=== PATIENT | female | born 1960 | race Caucasian/White ===

== ENCOUNTER 2022-05-06 11:10 | Emergency (ER) | payer OTHER ==
[~2022-05-06] VITALS: Ht 165.1 cm; Wt 82.6 kg
--- NOTE | 2022-05-06 11:15 | NUR ---
[id number] FROM HOME FOR C/O LOWER BACK PAIN S/O FALL ON TUESDAY. RATES PAIN 10/. ATTACHED TO MONITOR, NO RESP DISTRSS NOTED. WARM BLANKET PROVIDED FOR COMFORT. AWIATING MD GAITAN.
--- NOTE | 2022-05-06 11:29 | NUR ---
DR GRACIA AT THE BEDSIDE
[2022-05-06] MEDS ORDERED: MORPHINE SULFATE INJ 2 MG/ML DISP.SYRIN IM ONE (11:30)
[2022-05-06] MEDS ORDERED: ONDANSETRON 4 MG TAB.RAPDIS SL ONE (11:30)
[2022-05-06] MEDS ORDERED: MORPHINE SULFATE INJ 4 MG/ML DISP.SYRIN ONE ×3 (12:06→14:06)
[2022-05-06] MEDS ORDERED: ONDANSETRON 4 MG TAB.RAPDIS ONE (12:07)
--- NOTE | 2022-05-06 13:30 | NUR ---
MOVE SHEET SUBMITTED.
--- NOTE | 2022-05-06 13:44 | NUR ---
COVID TEST COLLECTED AND SENT
--- NOTE | 2022-05-06 13:54 | NUR ---
IV ETABLIHSED R WRIST 20G, LABS DRANW AND COLLECTED AT BEDSIDE
[2022-05-06 13:56] LABS: BASOPHILS % (AUTO) 0.4 % (0.0-2.0); EOSINOPHILS % (AUTO) 0.4 % (0.0-6.0); HEMATOCRIT 39 % (33-45); HEMOGLOBIN 12.8 g/dL (11.5-14.8); LYMPHOCYTES # (AUTO) 1.2 K/uL (0.8-4.8); LYMPHOCYTES % (AUTO) 10.1 % (20.0-44.0); MEAN CORPUSCULAR HGB CONC 33 g/dl (31.0-36.0); MEAN CORPUSCULAR VOLUME 93 fL (82-100); MONOCYTES # (AUTO) 0.7 K/uL (0.1-1.30); MONOCYTES % (AUTO) 5.9 % (2.0-12.0); NEUTROPHILS # (AUTO) 9.8 K/uL (1.8-8.9); NEUTROPHILS % (AUTO) 83.2 % (43.0-81.0); PLATELET COUNT (AUTO) 309 K/uL (150-450); WHITE BLOOD COUNT (AUTO) 11.7 K/uL (4.3-11.0)
[2022-05-06] MEDS ORDERED: PRED5TAB PO (14:02)
[2022-05-06] MEDS ORDERED: CARI350T27 PO (14:02)
[2022-05-06] MEDS ORDERED: PANT40TA49 PO (14:02)
[2022-05-06] MEDS ORDERED: TRAM50TA2 PO (14:02)
[2022-05-06 14:24] LABS: CREATININE 0.6 mg/dL (0.6-1.3); POTASSIUM 3.6 mmol/L (3.5-5.1)
[2022-05-06] MEDS ORDERED: MORPHINE SULFATE INJ 2 MG/ML DISP.SYRIN IV ONE (14:30)
--- NOTE | 2022-05-06 14:53 | NUR ---
SPOKE TO JOSH DICKINSON [phone] AND LOOKING FOR SNF PLACEMENT FOR PAIN MANAGEMENT. ASKING FOR CLINICALS TO BE FAXED TO [phone]
[2022-05-06] MEDS ORDERED: KETOROLAC TROMETHAMINE 15 MG/ML VIAL ONE (16:18)
[2022-05-06] MEDS ORDERED: KETOROLAC TROMETHAMINE INJ 30 MG/ML VIAL IV ONE (16:30)
[2022-05-06] MEDS ORDERED: METOCLOPRAMIDE HCL 10 MG/2 ML VIAL ONE (17:02)
[2022-05-06] MEDS ORDERED: METOCLOPRAMIDE HCL 10 MG/2 ML VIAL IV ONE (17:30)
[2022-05-06] MEDS ORDERED: HYDR-4209 PO (18:01)
--- NOTE | 2022-05-06 18:15 | NUR ---
IV removed. Catheter intact and site benign. Pressure and 4x4 applied to site. No bleeding noted.Patient discharged to home in stable condition. Written and verbal after care instructions given. Patient verbalizes understanding of instruction.
[2022-05-06 18:47] VITALS: BP 143/84
== END 2022-05-06 18:48 | disposition home or self-care (01) ==
LOC: ER 11:18
DX: M54.50 Low back pain, unspecified (principal); M51.36 Other intervertebral disc degeneration, lumbar region; Z20.822 Contact with and (suspected) exposure to COVID-19; I10 Essential (primary) hypertension; Z91.81 History of falling; Z60.2 Problems related to living alone
CPT/HCPCS: 99285; 96374; 72131; 96375; 87426; 85025; 80048; 36415; 96372; J2270 ×3; J2765; Q0162; J1885; C9803